=== PATIENT | male | born 1970 | race Caucasian/White ===

== ENCOUNTER → 2018-02-28 11:49 | Outpatient (CLI) | payer BC ==
[2018-03-03 03:06] LABS: TESTOSTERONE - FREE 7.5 pg/mL (6.8-21.5); TESTOSTERONE - SERUM 196 ng/dL (264-916)
== END | disposition home or self-care (01) ==
LOC: D.LAB 11:49
PROVIDERS: Urology
DX: E29.1 Testicular hypofunction (principal)

== ENCOUNTER → 2018-04-22 07:49 | Outpatient (CLI) | payer BC ==
[2018-04-24 04:15] LABS: TESTOSTERONE - FREE 8.5 pg/mL (6.8-21.5); TESTOSTERONE - SERUM 178 ng/dL (264-916)
== END | disposition home or self-care (01) ==
LOC: D.LAB 04-21 10:30
PROVIDERS: Urology
DX: E29.1 Testicular hypofunction (principal)

== ENCOUNTER → 2018-05-16 07:31 | Outpatient (CLI) | payer BC ==
[2018-05-18 14:09] LABS: TESTOSTERONE - FREE 8.8 pg/mL (6.8-21.5); TESTOSTERONE - SERUM 196 ng/dL (264-916)
== END | disposition home or self-care (01) ==
LOC: D.LAB 07:31
PROVIDERS: Urology
DX: E29.1 Testicular hypofunction (principal)

== ENCOUNTER → 2018-06-16 16:36 | Outpatient (CLI) | payer BC ==
[2018-06-18 22:07] LABS: TESTOSTERONE - FREE 23.9 pg/mL (6.8-21.5); TESTOSTERONE - SERUM 910 ng/dL (264-916)
== END | disposition home or self-care (01) ==
LOC: D.LAB 16:36
PROVIDERS: Urology
DX: E23.0 Hypopituitarism (principal)

== ENCOUNTER → 2018-07-18 09:10 | Outpatient (CLI) | payer BC ==
[2018-07-20 06:08] LABS: TESTOSTERONE - FREE 31.6 pg/mL (6.8-21.5); TESTOSTERONE - SERUM 1018 ng/dL (264-916)
== END | disposition home or self-care (01) ==
LOC: D.LAB 09:10
PROVIDERS: Urology
DX: E29.1 Testicular hypofunction (principal)